=== PATIENT | female | born 2000 | race Caucasian/White ===

== ENCOUNTER → 2020-04-07 08:50 | Outpatient (BNVA) | payer BC, SELFPAY | PROVIDERS: Visit Provider Physician Assistant | DX: K58.0 Irritable bowel syndrome with diarrhea (principal); K58.1 Irritable bowel syndrome with constipation; R10.11 Right upper quadrant pain; R11.0 Nausea ==

== ENCOUNTER 2020-05-05 14:58 | Outpatient (REF) | payer BC, SELFPAY ==
[2020-05-05 16:39] LABS: MANUAL DIFF FLAG NO
[2020-05-05 16:48] LABS: Basophils Percent Auto 0.4 % (0-2); Eosinophils Percent Auto 0.5 % (0-4); Hematocrit 37.9 % (37-47); Hemoglobin 12.4 g/dl (12.0-16.0); Imm Gran Abs Auto 0.01 X10*3/uL (0.00-0.03); Imm Gran Pct Auto 0.2 % (0.0-0.4); Lymphocytes Absolute Auto 1.9 X10*3/uL (1.2-4.9); Lymphocytes Percent Auto 34.4 % (20-40); Mean Corpuscular HGB Conc 32.7 g/dl (31.0-35.0); Mean Corpuscular Hemoglobin 29.7 pg (27.0-33.0); Mean Corpuscular Volume 90.9 fL (80-98); Mean Platelet Volume 10.8 fL (9.4-12.3); Monocytes Absolute Auto 0.5 X10*3/uL (0.1-1.2); Monocytes Percent Auto 9.2 % (2-11); Neutrophils Absolute Auto 3.1 X10*3/uL (2.0-8.3); Neutrophils Percent Auto 55.3 % (45-73); Platelet Count 236 X10*3/uL (160-400); Red Blood Count 4.17 X10*6/uL (4.20-5.50); Red Cell Distribution Width 11.4 % (11.0-16.0); White Blood Count 5.5 X10*3/uL (4.8-10.8)
[2020-05-05 17:09] LABS: Alanine Aminotransferase 10 U/L (0-31); Albumin Level 4.7 g/dL (3.5-5.0); Alkaline Phosphatase 61 U/L (39-117); Anion Gap 13 (12-20); Aspartate Amino Transferase 16 U/L (5-31); Bilirubin Total 0.6 mg/dL (0.0-1.0); Blood Urea Nitrogen 8 mg/dL (9-16); Calcium 9.1 mg/dL (8.4-10.2); Carbon Dioxide 26 mmol/L (22-29); Chloride 104 mmol/L (96-108); Estimated Glomerular Filt Rate > 60; Glucose Random 76 mg/dL (60-115); Potassium 3.8 mmol/l (3.3-5.1); Sodium 139 mmol/L (135-145); Total Protein 7.7 g/dL (6.5-8.0)
[2020-05-05 17:30] LABS: HCG Quantitative < 2 mIU/mL; Thyroid Stimulating Hormone 3.19 uIU/mL (0.32-4.0)
[2020-05-05 17:39] LABS: Erythrocyte Sedimentation Rate 9 MM/HR (0-20)
[2020-05-07 13:27] LABS: Transglutaminase IgA 1 U/mL
[2020-05-07 16:57] LABS: CRP High Sensitivity 0.5 mg/L
[2020-05-08 13:38] LABS: Endomysial IgA Antibody Negative (Negative)
== END 2020-05-05 14:59 | disposition home or self-care (01) ==
LOC: HO.HMGCLDS 14:58
PROVIDERS: Visit Provider Physician Assistant
DX: R19.7 Diarrhea, unspecified (principal); R10.11 Right upper quadrant pain; K58.9 Irritable bowel syndrome, unspecified; R11.0 Nausea; K59.09 Other constipation
CPT/HCPCS: 36415; 80053; 83516; 84443; 84702; 85025; 85652; 86141; 86255; 86256